=== PATIENT | female | born 1935 | race Caucasian/White ===

== ENCOUNTER 2019-10-21 14:48 | Observation (INO) ==
[2019-10-21] MEDS ORDERED: Mag Hydrox/Al Hydrox/Simeth 30 ML UDC PO PRN (17:17)
[2019-10-21] MEDS ORDERED: *HR* Promethazine 25 MG/ML VIAL IVP PRN (17:17)
[2019-10-21] MEDS ORDERED: Ondansetron 4 MG/2 ML VIAL IVP PRN (17:17)
[2019-10-21] MEDS ORDERED: Acetaminophen 325 MG TABLET PO PRN (17:17)
[2019-10-21] MEDS ORDERED: Naloxone 0.4 MG/ML INJ IVP PRN (17:17)
[2019-10-21] MEDS ORDERED: MOM Conc 10 ML UD.LIQ PO PRN (17:17)
[2019-10-21] MEDS ORDERED: Ergocalciferol (VIT D2) 50,000 UNIT (1.25MG) CAP PO SCH (17:30)
[2019-10-21] MEDS: NIFEdipine XL (24 HR) 60 MG TAB.ER.24 PO SCH (18:00)
[2019-10-21] MEDS: *HR* Heparin 5,000 UNIT/ML VIAL SQ SCH (18:01)
[2019-10-21] MEDS: CarBAMazepine XR (12 hr) 100 MG TAB PO SCH (18:01)
[2019-10-21] MEDS: *HR* HYDROcodone/Acet 5/325 mg TABLET PO PRN (18:26)
[2019-10-21] MEDS: cloNIDine HCL 0.1 MG TABLET PO SCH (19:31)
[2019-10-22] MEDS: *HR* HYDROcodone/Acet 5/325 mg TABLET PO PRN ×2 (04:32→23:57)
[2019-10-22] MEDS: *HR* Heparin 5,000 UNIT/ML VIAL SQ SCH ×2 (04:59→18:14)
[2019-10-22] MEDS: CarBAMazepine XR (12 hr) 100 MG TAB PO SCH ×2 (05:40→18:17)
[2019-10-22 05:51] LABS: Basophils # 0.1 K/mcL (0.0-0.2); Basophils % 0.9 %; Eosinophils # 0.2 K/mcL (0.0-0.6); Eosinophils % 3.4 %; Hematocrit 38.9 % (35.3-44.9); Hemoglobin 12.9 g/dL (11.5-15.4); Immature Granulocytes % 0.3 % (0-4); Lymphocytes # 1.5 K/mcL (0.6-4.6); Lymphocytes % 22.6 %; Mean Corpuscular HGB Conc 33.2 g/dL (31.6-35.5); Mean Corpuscular Hemoglobin 32.1 pg (28.0-33.3); Mean Corpuscular Volume 96.8 fL (83.0-100.0); Mean Platelet Volume 8.6 fL (9.4-12.4); Monocytes # 0.6 K/mcL (0.0-1.3); Monocytes % 9.3 %; Neutrophils # 4.1 K/mcL (1.6-8.9); Platelet Count 315 K/mcL (140-400); Red Blood Count 4.02 M/mcL (3.82-4.97); Red Cell Distribution Width 12.5 % (11.5-14.5); Segmented Neutrophils % 63.5 %; White Blood Count 6.4 K/mcL (4.3-11.1)
[2019-10-22 06:13] LABS: Alanine Aminotransferase 15 Units/L (7-52); Albumin 3.7 g/dL (3.5-5.7); Albumin/Globulin Ratio 1.4 (1.1-2.2); Alkaline Phosphatase 129 Units/L (34-104); Aspartate Amino Transferase 23 Units/L (13-39); BUN/Creatinine Ratio 21 (6-26); Bilirubin,Total 0.4 mg/dL (0.3-1.0); Blood Urea Nitrogen 11 mg/dL (8-23); Calcium 9.1 mg/dL (8.6-10.3); Carbon Dioxide 28 mEq/L (23-29); Chloride 98 mEq/L (98-107); Globulin 2.6 g/dL (2.4-3.5); Glucose 105 mg/dL (70-105); Magnesium 2.1 mg/dL (1.6-2.6); Osmolality,Calculated 276 (280-300); Phosphorous 4.3 mg/dL (2.7-4.5); Potassium 3.8 mEq/L (3.5-5.1); Sodium 133 mEq/L (136-145); Total Protein 6.3 g/dL (6.4-8.9); eGFR For African Americans > 60 (> 60); eGFR For Non-African Americans > 60 (> 60)
[2019-10-22] MEDS: cloNIDine HCL 0.1 MG TABLET PO SCH ×2 (09:12→19:52)
[2019-10-22] MEDS: Calcium Acetate 667 MG CAPSULE PO SCH ×3 (09:12→18:13)
[2019-10-22] MEDS: NIFEdipine XL (24 HR) 60 MG TAB.ER.24 PO SCH (09:12)
[2019-10-22] MEDS: Aspirin Enteric Coated 81 MG Tablet PO SCH (15:45)
[2019-10-22] MEDS: *HR* OxyCODONE Immed Rel 5 MG TABLET PO PRN (15:45)
[2019-10-23 04:16] LABS: BUN/Creatinine Ratio 30 (6-26); Blood Urea Nitrogen 16 mg/dL (8-23); Calcium 9.6 mg/dL (8.6-10.3); Carbon Dioxide 29 mEq/L (23-29); Chloride 99 mEq/L (98-107); Glucose 111 mg/dL (70-105); Osmolality,Calculated 282 (280-300); Potassium 3.9 mEq/L (3.5-5.1); Sodium 135 mEq/L (136-145); eGFR For African Americans > 60 (> 60); eGFR For Non-African Americans > 60 (> 60)
[2019-10-23] MEDS: *HR* Heparin 5,000 UNIT/ML VIAL SQ SCH ×2 (05:33→17:52)
[2019-10-23] MEDS: CarBAMazepine XR (12 hr) 100 MG TAB PO SCH ×2 (05:34→17:49)
[2019-10-23] MEDS: cloNIDine HCL 0.1 MG TABLET PO SCH ×2 (08:58→20:12)
[2019-10-23] MEDS: Calcium Acetate 667 MG CAPSULE PO SCH ×3 (08:58→17:50)
[2019-10-23] MEDS: NIFEdipine XL (24 HR) 60 MG TAB.ER.24 PO SCH (08:58)
[2019-10-23] MEDS: Aspirin Enteric Coated 81 MG Tablet PO SCH (08:58)
[2019-10-23] MEDS: *HR* HYDROcodone/Acet 5/325 mg TABLET PO PRN ×2 (12:55→23:52)
[2019-10-23] MEDS: *HR* OxyCODONE Immed Rel 5 MG TABLET PO PRN (18:16)
[2019-10-24] MEDS: *HR* Heparin 5,000 UNIT/ML VIAL SQ SCH ×2 (05:45→17:23)
[2019-10-24] MEDS: CarBAMazepine XR (12 hr) 100 MG TAB PO SCH ×2 (05:45→17:24)
[2019-10-24] MEDS: cloNIDine HCL 0.1 MG TABLET PO SCH ×2 (09:10→20:52)
[2019-10-24] MEDS: Calcium Acetate 667 MG CAPSULE PO SCH ×3 (09:11→17:23)
[2019-10-24] MEDS: NIFEdipine XL (24 HR) 60 MG TAB.ER.24 PO SCH (09:11)
[2019-10-24] MEDS: Aspirin Enteric Coated 81 MG Tablet PO SCH (09:11)
[2019-10-24] MEDS: *HR* HYDROcodone/Acet 5/325 mg TABLET PO PRN ×2 (09:16→17:23)
[2019-10-25] MEDS: *HR* HYDROcodone/Acet 5/325 mg TABLET PO PRN ×2 (00:25→09:16)
[2019-10-25] MEDS: *HR* Heparin 5,000 UNIT/ML VIAL SQ SCH (06:05)
[2019-10-25] MEDS: CarBAMazepine XR (12 hr) 100 MG TAB PO SCH ×2 (06:05→16:52)
[2019-10-25] MEDS: Calcium Acetate 667 MG CAPSULE PO SCH ×3 (09:15→16:45)
[2019-10-25] MEDS: NIFEdipine XL (24 HR) 60 MG TAB.ER.24 PO SCH (09:15)
[2019-10-25] MEDS: Aspirin Enteric Coated 81 MG Tablet PO SCH (09:16)
[2019-10-25] MEDS: cloNIDine HCL 0.1 MG TABLET PO SCH (09:16)
[2019-10-25 16:44] VITALS: BP 161/82
[2019-10-25] MEDS: *HR* OxyCODONE Immed Rel 5 MG TABLET PO PRN (16:45)
== END 2019-10-25 19:20 ==
LOC: 3NENU → EDBD 16:35 → SUATTDRO 16:35
PROVIDERS: ADMIT Internal Medicine; ATTEND Internal Medicine